=== PATIENT | male | born 1965 | race Caucasian/White ===

== ENCOUNTER 2022-03-06 06:32 | Day surgery (SDC) | payer MEDICARE, OTHER ==
[~2022-03-06 06:32] MED LIST: Dextrose 5%-0.45% NaCl 1,000 ML IV SCH; Midazolam 1 MG/ML 2 ML SDV ONE; Sodium Chloride 0.9% 10 ML Syringe FLUSH PRN; Sodium Chloride 0.9% 10 ML Syringe FLUSH SCH; fentaNYL 100 MCG/2 ML SDV ONE
[2022-03-06] MEDS ORDERED: fentaNYL 100 MCG/2 ML SDV IV ONE ×2 (07:58→07:59)
[2022-03-06] MEDS ORDERED: Midazolam 1 MG/ML 2 ML SDV IV ONE ×3 (08:00→08:03)
[2022-03-06 10:09] VITALS: BP 124/76; PULSE 106
== END 2022-03-06 10:14 | disposition home or self-care (01) ==
LOC: DL.ENDO 06:32
PROVIDERS: ATTEND Internal Medicine Gastroenterology
DX: Z12.11 Encounter for screening for malignant neoplasm of colon (principal); M19.90 Unspecified osteoarthritis, unspecified site; R60.0 Localized edema; E66.01 Morbid (severe) obesity due to excess calories; Z93.3 Colostomy status; Z86.19 Personal history of other infectious and parasitic diseases; Z86.010 Personal history of colon polyps; Z86.718 Personal history of other venous thrombosis and embolism; Z01.812 Encounter for preprocedural laboratory examination; Z20.822 Contact with and (suspected) exposure to COVID-19
CPT/HCPCS: 45378; 87635; J2250; J3010; J7042; U0002

== ENCOUNTER 2022-04-14 11:58 | Emergency (ER) | payer OTHER ==
[2022-04-14 12:29] VITALS: BP 114/76; PULSE 142
[2022-04-14 13:04] LABS: ANION GAP 14.9 mEq/L (7-13)
[2022-04-14] MEDS ORDERED: Sodium Chloride 0.9% 1,000 ML IV ONE (13:46)
== END 2022-04-14 15:28 | disposition home or self-care (01) ==
LOC: DL.ED 11:58
DX: E86.0 Dehydration (principal); R31.21 Asymptomatic microscopic hematuria; E66.9 Obesity, unspecified; Z68.30 Body mass index [BMI] 30.0-30.9, adult; Z79.899 Other long term (current) drug therapy; Z79.01 Long term (current) use of anticoagulants
CPT/HCPCS: 36415; 80053; 81001; 85025; 87086; 96360; 99283; 99284-25; J7030

== ENCOUNTER 2022-10-20 07:08 | Emergency (ER) | payer OTHER ==
[2022-10-20] MEDS ORDERED: Sodium Chloride 0.9% 10 ML Syringe FLUSH PRN (07:24)
[2022-10-20 07:37] VITALS: BP 118/84; PULSE 115
[2022-10-20 08:37] LABS: CHLORIDE,CL 104 mmol/L (98-107); SODIUM,NA 142 mmol/L (136-145)
[2022-10-20 08:38] LABS: ESTIMATED GFR 67 mL/min (>=60)
[2022-10-20 08:46] LABS: CORONAVIRUS COVID-19 NAA NEGATIVE (NEGATIVE); RESPIRATORY SYNCYTIAL VIR NAA NEGATIVE (NEGATIVE)
[2022-10-20 09:01] LABS: AMPHETAMINES,URINE NEGATIVE (NEGATIVE); BARBITURATES,URINE NEGATIVE (NEGATIVE); BENZODIAZEPINE,URINE NEGATIVE (NEGATIVE); MDMA (ECSTASY), URINE NEGATIVE (NEGATIVE); METHADONE,URINE NEGATIVE (NEGATIVE); METHAMPHETAMINES,URINE NEGATIVE (NEGATIVE); OPIATES,URINE NEGATIVE (NEGATIVE); PHENCYCLIDINE,URINE NEGATIVE (NEGATIVE); TCA,URINE NEGATIVE (NEGATIVE)
[2022-10-20 09:02] LABS: OXYCODONE,URINE NEGATIVE (NEGATIVE)
[2022-10-20] MEDS ORDERED: Dexamethasone 4 MG/ML SDV IVPUSH ONE (09:02)
[2022-10-20] MEDS ORDERED: levETIRAcetam in NaCl (iso-os) 2,000 MG in Premix Bag 1 BAG IV ONE ×2 (09:02)
[2022-10-20] MEDS ORDERED: cefTRIAXone 2 GM Vial IVPUSH ONE (09:35)
== END 2022-10-20 11:25 ==
LOC: DL.ED 07:08
DX: C71.9 Malignant neoplasm of brain, unspecified (principal); I45.10 Unspecified right bundle-branch block; E66.9 Obesity, unspecified; Z68.43 Body mass index [BMI] 50.0-59.9, adult; Z79.01 Long term (current) use of anticoagulants; Z79.899 Other long term (current) drug therapy; Z20.822 Contact with and (suspected) exposure to COVID-19
CPT/HCPCS: 0241U; 36415; 70450; 80053; 80305; 80307; 81001; 82140; 83605; 83735; 84145; 84443; 85025; 86140; 87040; 87086; 93005; 96365; 96375; 99285; C1758; J0696; J1100; J1953; J3490